=== PATIENT | female | born 1940 | race Caucasian/White ===

== ENCOUNTER → 2016-10-31 | Outpatient (CLI) | payer MEDICARE ==
[~2016-10-31] MED LIST: ALENDRONATE SOD70 MG PO; ASPIRIN 81MG TA81 MG PO; CEPHALEXIN500 M3 PO; CYCLOBENZAPRINE10 MG PO; DARVOCET-N 1001 EACH PO; DILTIAZEM CD 2240 MG PO; GLYCOLAX17 GM/DOSE PO; HYDROCHLOROTH12.5 M1 PO; LEVOTHYROXINE0.05 MG NG; LISINOPRIL40 MG PO; MONTELUKAST SOD10 MG PO; SIMVASTATIN40 MG PO; THEOPHYLLINE A200 MG PO; VENTOLIN H0.09 MG/Ac IH
--- NOTE | 2016-10-31 11:32 | RADIOLOGY REPORT PS360 ---
CHEST(2 VIEWS-NOT PORTABLE) HISTORY: COUGH COMPARISON: 02/18/2010 FINDINGS: The cardiomediastinal silhouette and pulmonary vascularity are within normal limits. The lungs are clear without infiltrates, suspicious nodules, or pleural effusions. There is a healing left seventh rib fracture. Nodular density is present in the left midlung laterally not readily apparent on the previous study measuring 5 mm probably benign. Six-month follow-up recommended. Calcified granuloma is present in the left lung base. Right lung is clear. Mild degenerative change thoracic spine with degenerative disc disease at T8-T9 which is worse on today's exam compared to the previous exam.. IMPRESSION: 1. No acute finding. 2. Healing left seventh rib fracture. 3. Probably benign nodular opacity left midlung
== END ==
LOC: RAD 10:38
DX: R05 Cough (principal)

== ENCOUNTER → 2016-11-06 | Outpatient (CLI) | payer MEDICARE ==
[2016-11-06 12:32] LABS: LYMPH # 0.7 K/mm3 (0.7-4.5); LYMPH % 5.1 % (10-50.0)
[2016-11-06 12:48] LABS: HEMOGLOBIN 14.6 g/dL (12.2-16.2)
[2016-11-06 13:54] LABS: BUN 25 mg/dL (7-18)
[2016-11-06 13:59] LABS: GFR (ESTIMATED) 61 ML/MIN (59-)
[2016-11-06 14:12] LABS: NEUTROPHILS 87 % (42-76)
== END ==
LOC: LAB 12:18
PROVIDERS: Surgery
DX: Z01.810 Encounter for preprocedural cardiovascular examination (principal); Z01.812 Encounter for preprocedural laboratory examination